=== PATIENT | female | born 1995 | race Caucasian/White ===

== ENCOUNTER 2017-10-18 11:46 | Emergency (ER) | payer OTHER, MEDICAID ==
[2017-10-18 14:57] LABS: ADD MAN DIFF? NO
[2017-10-18 14:59] LABS: BASOPHILS % 0.6 % (0.0-2.0); EOSINOPHILS % 0.6 % (0.0-7.0); HEMATOCRIT 39.1 % (37.0-47.0); HEMOGLOBIN 13.5 g/dl (12.0-16.0); LYMPHOCYTES # 1.9 10^3/ul (0.8-2.9); LYMPHOCYTES % 35.3 % (15.0-51.0); MEAN CORPUSCULAR HEMOGLOBIN 29.5 pg (29.0-33.0); MEAN CORPUSCULAR HGB CONC 34.5 g/dl (32.0-37.0); MEAN CORPUSCULAR VOLUME 85.6 fl (82.0-101.0); MEAN PLATELET VOLUME 10.2 fl (7.4-10.4); MONOCYTE # 0.3 10^3/ul (0.3-0.9); MONOCYTES % 5.2 % (0.0-11.0); NEUTROPHIL # 3.1 10^3/ul (1.6-7.5); NEUTROPHILS % 57.9 % (39.0-77.0); PLATELET COUNT 265 10^3/UL (140-415); RED BLOOD COUNT 4.57 10^6/ul (4.20-5.40)
[2017-10-18 14:59] LABS: WHITE BLOOD COUNT 5.4 10^3/ul (4.8-10.8)
[2017-10-18 15:15] LABS: ADD UMIC YES; UR ASCORBIC ACID NEGATIVE (NEGATIVE); UR BACTERIA FEW /HPF (NONE SEEN); UR BILIRUBIN (Dip) NEGATIVE (NEGATIVE); UR BLOOD (Dip) 2+ mg/dL (NEGATIVE); UR CLARITY CLOUDY (CLEAR); UR COLOR YELLOW (YELLOW); UR GLUCOSE (Dip) NEGATIVE (NEGATIVE); UR KETONES (Dip) NEGATIVE (NEGATIVE); UR LEUKOCYTE ESTERASE (Dip) 2+ Leu/ul (NEGATIVE); UR MUCUS MANY /HPF (NONE SEEN); UR NITRITE (Dip) POSITIVE (NEGATIVE); UR RBC 2 /HPF (0-5); UR SQUAMOUS EPITHELIAL CELL FEW /HPF (FEW); UR TOTAL PROTEIN (Dip) NEGATIVE (NEGATIVE); UR UROBILINOGEN (Dip) NEGATIVE (NEGATIVE); UR WBC 52 /HPF (0-5)
[2017-10-18] MEDS: ACETAMINOPHEN 500 MG TAB PO (17:45)
== END 2017-10-18 17:56 | disposition home or self-care (01) ==
LOC: FTE 11:46
DX: O02.1 Missed abortion (principal); O23.11 Infections of bladder in pregnancy, first trimester; Z3A.11 11 weeks gestation of pregnancy
CPT/HCPCS: 76801; 76817; 81001; 84702; 85025; 86900; 86901; 99284-25

== ENCOUNTER 2018-10-13 00:30 | Outpatient (CLI) | payer OTHER ==
[2018-10-13] MEDS: ACETAMINOPHEN 500 MG TAB PO (01:21)
[2018-10-13 02:38] LABS: ADD UMIC YES; UR AMORPHOUS CRYSTAL FEW /HPF (NONE SEEN); UR ASCORBIC ACID NEGATIVE (NEGATIVE); UR BACTERIA FEW /HPF (NONE SEEN); UR BILIRUBIN (Dip) NEGATIVE (NEGATIVE); UR BLOOD (Dip) NEGATIVE (NEGATIVE); UR CLARITY SLIGHTLY CLOUDY (CLEAR); UR COLOR YELLOW (YELLOW); UR GLUCOSE (Dip) NEGATIVE (NEGATIVE); UR KETONES (Dip) NEGATIVE (NEGATIVE); UR LEUKOCYTE ESTERASE (Dip) 2+ Leu/ul (NEGATIVE); UR NITRITE (Dip) NEGATIVE (NEGATIVE); UR RBC 2 /HPF (0-5); UR SPECIFIC GRAVITY (Dip) 1.005 (1.003-1.030); UR SQUAMOUS EPITHELIAL CELL FEW /HPF (FEW); UR TOTAL PROTEIN (Dip) NEGATIVE (NEGATIVE); UR UROBILINOGEN (Dip) NEGATIVE (NEGATIVE); UR WBC 24 /HPF (0-5)
== END 2018-10-13 03:10 | disposition home or self-care (01) ==
LOC: OBT 00:30 → L-D 00:30 → OBT 03:10
DX: O26.892 Other specified pregnancy related conditions, second trimester (principal); Z3A.23 23 weeks gestation of pregnancy; R10.2 Pelvic and perineal pain
CPT/HCPCS: 76817; 81001

== ENCOUNTER 2018-12-03 05:44 | Inpatient (IN) | payer SELFPAY, MEDICAID ==
[2018-12-03] MEDS: LACTATED RINGER'S 1,000 ML IV (06:24)
[2018-12-03 07:07] LABS: ADD MAN DIFF? NO
[2018-12-03 07:10] LABS: BASOPHILS % 0.3 % (0.0-2.0); EOSINOPHILS % 0.2 % (0.0-7.0); HEMATOCRIT 32.7 % (37.0-47.0); HEMOGLOBIN 10.9 g/dl (12.0-16.0); LYMPHOCYTES % 8.7 % (15.0-51.0); MEAN CORPUSCULAR HEMOGLOBIN 29.7 pg (29.0-33.0); MEAN CORPUSCULAR HGB CONC 33.3 g/dl (32.0-37.0); MEAN CORPUSCULAR VOLUME 89.1 fl (82.0-101.0); MEAN PLATELET VOLUME 11.3 fl (7.4-10.4); MONOCYTE # 0.7 10^3/ul (0.3-0.9); MONOCYTES % 5.5 % (0.0-11.0); NEUTROPHILS % 84.3 % (39.0-77.0); PLATELET COUNT 175 10^3/UL (140-415); RED BLOOD COUNT 3.67 10^6/ul (4.20-5.40); RED CELL DISTRIBUTION WIDTH 12.4 % (11.5-14.5)
[2018-12-03 07:10] LABS: WHITE BLOOD COUNT 11.9 10^3/ul (4.8-10.8)
[2018-12-03 07:24] LABS: ALANINE AMINOTRANSFERASE 19 IU/L (13-69); ALBUMIN 3.3 g/dl (3.3-4.9); ALBUMIN/GLOBULIN RATIO 1.06; ALKALINE PHOSPHATASE 101 IU/L (42-121); ANION GAP 7 (5-13); ASPARTATE AMINO TRANSFERASE 14 IU/L (15-46); BILIRUBIN,INDIRECT 0.4 mg/dl (0-1.1); BILIRUBIN,TOTAL 0.4 mg/dl (0.2-1.3); BLOOD UREA NITROGEN 2 mg/dl (7-20); CALCIUM 8.8 mg/dl (8.4-10.2); CARBON DIOXIDE 25 mmol/L (21-31); CHLORIDE 107 mmol/L (97-110); CREATININE 0.38 mg/dl (0.44-1.00); Estimated GFR > 60 mL/min (>60); GLUCOSE 89 mg/dl (70-220); POTASSIUM 3.9 mmol/L (3.5-5.1); SODIUM 139 mmol/L (135-144); TOTAL PROTEIN 6.4 g/dl (6.1-8.1)
[2018-12-03 07:47] LABS: ADD UMIC YES; UR ASCORBIC ACID NEGATIVE (NEGATIVE); UR BACTERIA FEW /HPF (NONE SEEN); UR BILIRUBIN (Dip) NEGATIVE (NEGATIVE); UR BLOOD (Dip) 1+ mg/dL (NEGATIVE); UR CLARITY SLIGHTLY CLOUDY (CLEAR); UR COLOR STRAW (YELLOW); UR GLUCOSE (Dip) NEGATIVE (NEGATIVE); UR KETONES (Dip) NEGATIVE (NEGATIVE); UR LEUKOCYTE ESTERASE (Dip) 2+ Leu/ul (NEGATIVE); UR NITRITE (Dip) NEGATIVE (NEGATIVE); UR RBC 1 /HPF (0-5); UR SPECIFIC GRAVITY (Dip) 1.009 (1.003-1.030); UR SQUAMOUS EPITHELIAL CELL FEW /HPF (FEW); UR TOTAL PROTEIN (Dip) NEGATIVE (NEGATIVE); UR UROBILINOGEN (Dip) NEGATIVE (NEGATIVE); UR WBC 2 /HPF (0-5)
[2018-12-03] MEDS: SOD CHLORIDE 0.9% 1,000 ML IV ×2 (10:39→18:41)
[2018-12-03] MEDS: CEFTRIAXONE 1 GM/50 ML (PMX) 50 ML IVPB (10:39)
[2018-12-03] MEDS: ACETAMINOPHEN 500 MG TAB PO (19:19)
[2018-12-04] MEDS: SOD CHLORIDE 0.9% 1,000 ML IV ×3 (02:31→17:58)
[2018-12-04] MEDS: CEFTRIAXONE 1 GM/50 ML (PMX) 50 ML IVPB (09:21)
[2018-12-04] MEDS: ACETAMINOPHEN 500 MG TAB PO (09:27)
== END 2018-12-04 21:20 | disposition home or self-care (01) | DRG 833 ==
LOC: OBT 05:44 → L-D 05:46 → OBT 09:00 → L-D 09:10 → PP1 19:58
DX: O26.893 Other specified pregnancy related conditions, third trimester (principal); M54.9 Dorsalgia, unspecified; Z3A.30 30 weeks gestation of pregnancy
CPT/HCPCS: 36415; 76815; 76817; 76818; 80053; 81001; 85025; 87040-91; 87086; 93005; 96360; 96361

== ENCOUNTER 2019-01-25 08:10 | Inpatient (IN) | payer OTHER ==
[2019-01-25 09:33] LABS: ADD UMIC NO; UR ASCORBIC ACID NEGATIVE (NEGATIVE); UR BILIRUBIN (Dip) NEGATIVE (NEGATIVE); UR BLOOD (Dip) NEGATIVE (NEGATIVE); UR CLARITY CLEAR (CLEAR); UR COLOR AMBER (YELLOW); UR GLUCOSE (Dip) NEGATIVE (NEGATIVE); UR KETONES (Dip) NEGATIVE (NEGATIVE); UR LEUKOCYTE ESTERASE (Dip) NEGATIVE Leu/ul (NEGATIVE); UR NITRITE (Dip) NEGATIVE (NEGATIVE); UR SPECIFIC GRAVITY (Dip) 1.011 (1.003-1.030); UR TOTAL PROTEIN (Dip) NEGATIVE (NEGATIVE); UR UROBILINOGEN (Dip) NEGATIVE (NEGATIVE)
[2019-01-25 09:44] LABS: ADD MAN DIFF? NO
[2019-01-25 09:46] LABS: BASOPHILS % 0.5 % (0.0-2.0); EOSINOPHILS % 0.3 % (0.0-7.0); HEMATOCRIT 32.2 % (37.0-47.0); HEMOGLOBIN 10.8 g/dl (12.0-16.0); LYMPHOCYTES # 1.3 10^3/ul (0.8-2.9); LYMPHOCYTES % 21.2 % (15.0-51.0); MEAN CORPUSCULAR HEMOGLOBIN 28.6 pg (29.0-33.0); MEAN CORPUSCULAR HGB CONC 33.5 g/dl (32.0-37.0); MEAN CORPUSCULAR VOLUME 85.2 fl (82.0-101.0); MEAN PLATELET VOLUME 11.4 fl (7.4-10.4); MONOCYTE # 0.4 10^3/ul (0.3-0.9); MONOCYTES % 6.4 % (0.0-11.0); NEUTROPHIL # 4.2 10^3/ul (1.6-7.5); NEUTROPHILS % 70.3 % (39.0-77.0); PLATELET COUNT 224 10^3/UL (140-415); RED BLOOD COUNT 3.78 10^6/ul (4.20-5.40); RED CELL DISTRIBUTION WIDTH 12.9 % (11.5-14.5)
[2019-01-25] MEDS: LACTATED RINGER'S 1,000 ML IV (10:59)
[2019-01-25] MEDS: DEXTROSE 5%-LR 1,000 ML IV ×2 (14:53→20:03)
[2019-01-26] MEDS: DEXTROSE 5%-LR 1,000 ML IV (04:29)
[2019-01-26] MEDS: LACTATED RINGER'S 1,000 ML IV ×4 (12:53→22:19)
[2019-01-27] MEDS ORDERED: BUTORPHANOL 2 MG INJ IV (15:00)
[2019-01-27] MEDS ORDERED: LIDOCAINE 1% (MPF) 30 ML INJ INJ (15:00)
[2019-01-27] MEDS ORDERED: IBUPROFEN 600 MG TAB PO (15:00)
[2019-01-27] MEDS ORDERED: METHYLERGONOVINE 0.2 MG INJ IM (15:00)
[2019-01-27] MEDS ORDERED: CARBOPROST 250 MCG INJ IM (15:00)
[2019-01-27] MEDS ORDERED: MISOPROSTOL 200 MCG TAB PR (15:00)
[2019-01-27] MEDS ORDERED: OXYTOCIN 30 UNITS/LR 500 ML IV ×2 (15:00)
[2019-01-27 16:33] LABS: ADD MAN DIFF? NO
[2019-01-27 16:49] LABS: HEMATOCRIT 32.2 % (37.0-47.0); HEMOGLOBIN 10.6 g/dl (12.0-16.0); MEAN CORPUSCULAR VOLUME 86.3 fl (82.0-101.0); RED BLOOD COUNT 3.73 10^6/ul (4.20-5.40)
[2019-01-27 16:49] LABS: WHITE BLOOD COUNT 7.2 10^3/ul (4.8-10.8)
[2019-01-27 16:50] LABS: EOSINOPHILS % 0.4 % (0.0-7.0); LYMPHOCYTES % 17.5 % (15.0-51.0); MEAN CORPUSCULAR HEMOGLOBIN 28.4 pg (29.0-33.0); MEAN CORPUSCULAR HGB CONC 32.9 g/dl (32.0-37.0); MEAN PLATELET VOLUME 11.5 fl (7.4-10.4); MONOCYTES % 6.4 % (0.0-11.0); NEUTROPHILS % 74.5 % (39.0-77.0); PLATELET COUNT 222 10^3/UL (140-415); RED CELL DISTRIBUTION WIDTH 13.1 % (11.5-14.5)
[2019-01-27 16:51] LABS: BASOPHILS % 0.4 % (0.0-2.0); LYMPHOCYTES # 1.3 10^3/ul (0.8-2.9); MONOCYTE # 0.5 10^3/ul (0.3-0.9); NEUTROPHIL # 5.4 10^3/ul (1.6-7.5)
[2019-01-27 16:59] LABS: INR 0.89; PROTIME 12.2 Sec (11.9-14.9)
[2019-01-27 17:00] LABS: PARTIAL THROMBOPLASTIN TIME 24.5 Sec (23.0-35.0)
[2019-01-27] MEDS ORDERED: MISOPROSTOL 50 MCG CAPSULE (18:41)
[2019-01-27] MEDS: MISOPROSTOL 50 MCG CAPSULE PO ×2 (18:56→22:57)
[2019-01-27] MEDS: LACTATED RINGER'S 1,000 ML IV (21:09)
[2019-01-28] MEDS: MISOPROSTOL 50 MCG CAPSULE PO ×4 (03:07→18:36)
[2019-01-28] MEDS: LACTATED RINGER'S 1,000 ML IV ×6 (05:12→20:26)
[2019-01-28] MEDS ORDERED: FENTAnyl 2MCG/ML-ROPIV 0.2% 100 ML (06:01)
[2019-01-28] MEDS ORDERED: NALOXONE (0.4 MG/ML) INJ IV (06:30)
[2019-01-28] MEDS: FENTAnyl 2MCG/ML-ROPIV 0.2% 100 ML BAG EPI (14:57)
[2019-01-28 22:31] LABS: RAPID PLASMA REAGIN NONREACTIVE (NR)
[2019-01-29] MEDS: OXYTOCIN 30 UNITS/LR 500 ML IV ×2 (00:11→21:08)
[2019-01-29] MEDS: FENTAnyl 2MCG/ML-ROPIV 0.2% 100 ML BAG EPI ×3 (00:11→20:12)
[2019-01-29] MEDS: LACTATED RINGER'S 1,000 ML IV ×3 (04:30→21:06)
[2019-01-30] MEDS: LACTATED RINGER'S 1,000 ML IV ×5 (04:51→20:37)
[2019-01-30] MEDS: FENTAnyl 2MCG/ML-ROPIV 0.2% 100 ML BAG EPI ×3 (05:41→20:20)
[2019-01-31] MEDS: OXYTOCIN 30 UNITS/LR 500 ML IV ×3 (01:44→12:11)
[2019-01-31] MEDS ORDERED: CARBOPROST 250 MCG INJ IM (02:00)
[2019-01-31] MEDS ORDERED: OXYTOCIN 30 UNITS/LR 500 ML IV (02:00)
[2019-01-31] MEDS ORDERED: METHYLERGONOVINE 0.2 MG INJ IM (02:00)
[2019-01-31] MEDS ORDERED: MISOPROSTOL 200 MCG TAB PR (02:00)
[2019-01-31] MEDS: ACETAMINOPHEN 325 MG TAB PO (02:31)
[2019-01-31] MEDS: HYDROCODONE/APAP (5/325) TAB PO ×2 (04:47→09:08)
[2019-01-31] MEDS: IBUPROFEN 600 MG TAB PO ×4 (05:55→23:55)
[2019-01-31] MEDS: LACTATED RINGER'S 1,000 ML IV* ×3 (06:10→17:39)
[2019-01-31] MEDS: LANOLIN HPA 1 PKT TOP (12:11)
[2019-02-01] MEDS: LANOLIN HPA 1 PKT TOP (06:00)
[2019-02-01] MEDS: IBUPROFEN 600 MG TAB PO ×3 (06:13→18:09)
[2019-02-01 07:18] LABS: ADD MAN DIFF? NO
[2019-02-01 07:23] LABS: WHITE BLOOD COUNT 8.9 10^3/ul (4.8-10.8)
[2019-02-01 07:23] LABS: BASOPHILS % 0.3 % (0.0-2.0); EOSINOPHILS # 0.1 10^3/ul (0.0-0.5); EOSINOPHILS % 0.8 % (0.0-7.0); HEMATOCRIT 35.1 % (37.0-47.0); HEMOGLOBIN 11.1 g/dl (12.0-16.0); LYMPHOCYTES % 22.2 % (15.0-51.0); MEAN CORPUSCULAR HGB CONC 31.6 g/dl (32.0-37.0); MEAN CORPUSCULAR VOLUME 88.4 fl (82.0-101.0); MEAN PLATELET VOLUME 11.5 fl (7.4-10.4); MONOCYTE # 0.5 10^3/ul (0.3-0.9); MONOCYTES % 5.5 % (0.0-11.0); NEUTROPHIL # 6.1 10^3/ul (1.6-7.5); NEUTROPHILS % 69.4 % (39.0-77.0); PLATELET COUNT 181 10^3/UL (140-415); RED BLOOD COUNT 3.97 10^6/ul (4.20-5.40); RED CELL DISTRIBUTION WIDTH 13.6 % (11.5-14.5)
[2019-02-02] MEDS: IBUPROFEN 600 MG TAB PO ×3 (00:03→11:52)
[2019-02-02] MEDS: DIPHTH/TET/ACEL PERTUSS (ADULT) 0.5 ML VIAL IM* (09:00)
== END 2019-02-02 12:55 | disposition home or self-care (01) | DRG 807 ==
LOC: OBT 08:10 → L-D 01-27 14:00 → PP1 01-31 03:23 → L-D 08:18 → OBT 13:30 → L-D 13:30
PROC: 10E0XZZ Delivery of Products of Conception, External Approach (ICD-10-PCS; principal; 2019-01-31)
DX: O69.81X0 Labor and delivery complicated by cord around neck, without compression, not applicable or unspecified (principal); Z37.0 Single live birth; Z3A.39 39 weeks gestation of pregnancy
CPT/HCPCS: 36415; 62322; 76815; 76818; 81003; 85025; 85610; 85730; 86592; 86850; 86900; 86901; 96360; 96361